=== PATIENT | male | born 1990 | race Two or more races ===

== ENCOUNTER 2020-03-23 12:13 | Emergency (ER) | payer OTHER ==
[~2020-03-23] VITALS: Ht 180.3 cm; Wt 86.4 kg
[2020-03-23 12:19] VITALS: BP 154/71
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
--- NOTE | 2020-03-23 12:56 | NUR ---
Patient/Caregiver given discharge instructions and they have confirmed that they understand the instructions. Patient ambulatory with steady gait.
== END 2020-03-23 12:58 | disposition home or self-care (01) ==
LOC: ED 12:41
DX: H60.502 Unspecified acute noninfective otitis externa, left ear (principal); H66.92 Otitis media, unspecified, left ear; Z87.891 Personal history of nicotine dependence
CPT/HCPCS: 99283